=== PATIENT | female | born 1975 ===

== ENCOUNTER 2020-05-29 12:29 | Day surgery (SDC) | payer MEDICAID ==
[2020-05-29] MEDS ORDERED: Betamethasone Acetate/Betamethasone Sod Phosphate 30 MG/5 ML MDV EPIDUR ONE (14:30)
[2020-05-29] MEDS ORDERED: Lidocaine 2% 5 ML SDV INJECT ONE (14:30)
[2020-05-29] MEDS ORDERED: Ropivacaine 0.5% 5 MG/ML 30 ML SDV INJECT ONE (14:30)
[2020-05-29] MEDS ORDERED: Iopamidol 200-M 10 ML vial ITHECAL ONE (14:30)
--- NOTE | 2020-05-29 17:11 | OR ---
SURGEON: Di Mcgill D.O. DATE OF PROCEDURE: 05/29/2020 PRIMARY SURGEON: Di Mcgill DO ASSISTANTS: OR staff present: 1. Nolan Ford RT. 2. Sena Vásquez RN. 3. Elena Culp RN. WOUND CLASS: I. PREOPERATIVE DIAGNOSES: 1. Lumbar L5-S1 degenerative disk disease. 2. L3-4, L4-5, L5-S1 spondylosis. 3. Chronic low back pain with left lower extremity radiculopathy. POSTOPERATIVE DIAGNOSES: 1. Lumbar L5-S1 degenerative disk disease. 2. L3-4, L4-5, L5-S1 spondylosis. 3. Chronic low back pain with left lower extremity radiculopathy. PROCEDURES PERFORMED: 1. Left S1 transforaminal epidural steroid injection. 2. Fluoroscopic guidance for needle placement. 3. Local with oral Valium for sedation. SCREENING QUESTIONS: The patient answered "no" to all of the following questions: 1. Are you allergic to iodine, Betadine or latex? 2. Do you have a bleeding disorder? 3. Do you have any joint replacements, heart valve replacements, or a pacemaker? 4. Are you allergic to anti-inflammatories or blood thinners? 5. Do you have any current local or systemic infections? DESCRIPTION OF PROCEDURE: The patient had the procedure thoroughly explained including risks, benefits and alternatives. Consent was signed in my clinic indicating understanding and willingness to proceed. The patient presented to [facility] [place] where the patient was escorted to the dressing room to disrobe and change into a hospital gown. Preoperative vital signs were taken and stable. The patient reported that Valium was taken prior to the procedure. The patient was brought to the procedure room and placed in the prone position on the table. A pillow was placed under the abdomen in order to flatten the lumbar lordosis. The back was prepped with ChloraPrep and sterilely draped. All personnel in the operating room were dressed in appropriate attire including surgical scrubs, head and shoe covers. This was to ensure sterility while in the treatment room. During the time fluoroscopy was in use, all personnel in the operating room wore lead parks with thyroid collars. Sterile technique was used during the procedure. The fluoroscope was placed for the left S1 transforaminal epidural steroid injection. There was no sign of infection at the skin site for needle insertion. The skin was anesthetized with 2% lidocaine with a 27 gauge 1-1/2 inch needle. Then, a 22 gauge 3-1/2 inch spinal needle, advanced to the left S1. Under direct fluoroscopic guidance needle position was verified in three views; AP, oblique and lateral, with 0.2 cubic centimeters increments of Isovue- 200 dye. No intravascular flow pattern was observed under live fluoroscopy. Then 12 milligrams of Celestone and local was slowly injected after negative aspiration of heme, cerebrospinal fluid and no paresthesias were noted. The needle was cleared prior to removal from the skin. No adverse reactions were noted. The patient was brought to the recovery room awake and in good condition by my staff. The patient was monitored and discharge instructions were given after a brief stay in the recovery area. Both oral and written discharge and follow up instructions were given. The patient will follow up in the clinic in 3-4 weeks post procedure to evaluate the efficacy. The patient verbalized understanding including understanding of those signs and symptoms that would require emergency care and knows how to contact the office if there are any problems or questions in the meantime. PREOPERATIVE PAIN: 02/28. POSTOPERATIVE PAIN: 08/31. FOLLOWUP: In the Pain Clinic in 3 weeks. TONY / LOIS /[id number] LEIDY
== END 2020-05-29 14:30 ==
LOC: MW.SDS 12:29
PROVIDERS: ATTEND Anesthesiology
DX: G89.29 Other chronic pain (principal); M51.17 Intervertebral disc disorders with radiculopathy, lumbosacral region; M47.27 Other spondylosis with radiculopathy, lumbosacral region; M47.26 Other spondylosis with radiculopathy, lumbar region; M41.9 Scoliosis, unspecified; F41.9 Anxiety disorder, unspecified; F32.9 Major depressive disorder, single episode, unspecified; K21.9 Gastro-esophageal reflux disease without esophagitis; M79.18 Myalgia, other site; Z88.8 Allergy status to other drugs, medicaments and biological substances; Z79.899 Other long term (current) drug therapy; Z98.890 Other specified postprocedural states

== ENCOUNTER 2020-07-01 10:59 | Day surgery (SDC) | payer MEDICAID ==
[2020-07-01] MEDS ORDERED: Ropivacaine 0.5% 5 MG/ML 30 ML SDV INJECT ONE (12:30)
[2020-07-01] MEDS ORDERED: Betamethasone Acetate/Betamethasone Sod Phosphate 30 MG/5 ML MDV EPIDUR ONE (12:30)
[2020-07-01] MEDS ORDERED: Iopamidol 200-M 10 ML vial ITHECAL ONE (12:30)
[2020-07-01] MEDS ORDERED: Lidocaine 2% 5 ML SDV INJECT ONE (12:30)
--- NOTE | 2020-07-01 14:59 | OR ---
SURGEON: Di Mcgill D.O. DATE OF PROCEDURE: 07/01/2020 PRIMARY SURGEON: Di Mcgill D.O. PREOPERATIVE DIAGNOSES: 1. Lumbar spondylosis. 2. Lumbar facet arthropathy, L3-4, L4-5, and L5-S1. 3. Lumbar degenerative disk disease. 4. Chronic low back pain. POSTOPERATIVE DIAGNOSES: 1. Lumbar spondylosis. 2. Lumbar facet arthropathy, L3-4, L4-5, and L5-S1. 3. Lumbar degenerative disk disease. 4. Chronic low back pain. ASSISTANTS: OR staff present: 1. Sena Vásquez RN. 2. Anay Bautista RN. 3. Jluiette Wu RT. WOUND CLASS: I. PROCEDURES PERFORMED: 1. Right L3 medial branch block. 2. Right L4 medial branch block. 3. Right L5 dorsal ramus branch block. 4. Left L3 medial branch block. 5. Left L4 medial branch block. 6. Left L5 dorsal ramus branch block. 7. Fluoroscopic guidance for needle placement. 8. Local with oral Valium for sedation. SCREENING QUESTIONS: The patient answered "No" to all the following questions: 1. Are you allergic to iodine, Betadine or latex? 2. Do you have a bleeding disorder? 3. Are you on anti-inflammatories or blood thinners? 4. Do you have any current local or systemic infections? DESCRIPTION OF PROCEDURE: The patient had the procedure thoroughly explained including risks, benefits and alternatives. Consent was signed in my clinic indicating understanding and willingness to proceed. The patient presented to [facility] [place] and was escorted to the dressing room to disrobe and change into a hospital gown. Preoperative history and screening were performed by my nurse. Vital signs were taken and stable. The patient reported that Valium 10 milligrams was taken prior to the procedure. The patient was brought back to the procedure room and placed in the prone position on the procedure room table. A pillow was placed under the abdomen in order to flatten the lumbar lordosis. The back was prepped with ChloraPrep and sterilely draped. All personnel in the procedure room were dressed in appropriate attire including surgical scrubs, head and shoe covers. This was to ensure sterility while in the treatment room. During the time fluoroscopy was in use all personnel in the operating room wore lead parks with thyroid collars. Sterile technique was used during the procedure. Then the fluoroscope was positioned to provide a right oblique view for the right L3 and then the right L4 medial branch blocks. This was begun by anesthetizing the skin and soft tissues over the area. The fluoroscope was positioned and a sterile 22-gauge 3.5 inch needle was placed at the junction of the " 12 o'clock position of the eye of the Gregorio dog "' at the junction of the transverse process and the superior articular process of the L 4 and L5 vertebral body respectively. Precise needle placement was confirmed by fluoroscopy. Then 0.2 cubic centimeters of IsoVue-200 contrast dye was injected through microbore tubing under live fluoroscopy and showed no intravascular flow pattern and adequate flow over the target medial branch. After negative aspiration, 1.0 cubic centimeters of a mixture of Celestone and local was injected without complications. The fluoroscope was then positioned to provide a right L5 dorsal ramus block. This was begun by anesthetizing the skin and soft tissues over the right sacral sulcus. Then using fluoroscopic guidance, a sterile 22-gauge 3.5 inch spinal needle was positioned at the right sacral ala. Precise needle placement was confirmed by fluoroscopy in AP and oblique views, and 0.2 cubic centimeters of IsoVue-200 contrast dye was injected through microbore tubing under live fluoroscopy and showed no intravascular flow pattern and adequate flow over the target nerves. After negative aspiration, 0.5 cubic centimeters of 0.5% Ropivacaine was injected. No complications were noted. The fluoroscope was positioned then to provide a left L3 and L4 medial branch block. The skin was anesthetized. Then a 22-gauge 3.5 inch spinal needle was positioned at the junction of the transverse process and the superior articular process of the L4 and the L5 vertebral body on the left. Precise needle placement was confirmed by fluoroscopy and with 0.2 cubic centimeters of IsoVue-200 contrast dye injected through microbore tubing showing no intravascular flow pattern and adequate flow over the target medial branch of L4 on the left. Then 0.5 cubic centimeters of 0.5% Ropivacaine was injected after negative aspiration without complications. Then the fluoroscope was positioned for the left L5 dorsal ramus block. This was begun by anesthetizing the skin and soft tissues. Then with fluoroscopic guidance a sterile 22-gauge 3.5 inch spinal needle was positioned at the left sacral ala. Precise needle placement was confirmed with 0.2 cubic centimeters of IsoVue-200 contrast dye injected through microbore tubing under live fluoroscopy showing no intravascular flow pattern and adequate flow over the target L5 nerve. Then 0.5 cubic centimeters of 0.5% Ropivacaine was injected after negative aspiration without complications. The procedure was well tolerated and vital signs were stable during and after the procedure. The staff escorted the patient to the recovery area. The patient was given both oral and written discharge and followup instructions. The patient will follow up with a pain diary which will be evaluated over this evening doing things that would normally cause pain. We will evaluate the efficacy of the diagnostic lumbar medial branch blocks as the patient will follow up in the clinic the next day. The patient was given both oral and written discharge and followup instructions. The patient voiced understanding including understanding of those signs and symptoms that would require emergency care and knows how to contact the office if there are any questions or concerns in the meantime. PREOPERATIVE PAIN: 7/10. POSTOPERATIVE PAIN: 2/10. FOLLOWUP: In Pain Clinic in 3 weeks. TONY / LOIS /[id number] LEIDY
== END 2020-07-01 13:30 ==
LOC: MW.SDS 10:59
PROVIDERS: ATTEND Anesthesiology
DX: G89.29 Other chronic pain (principal); M47.816 Spondylosis without myelopathy or radiculopathy, lumbar region; M47.817 Spondylosis without myelopathy or radiculopathy, lumbosacral region; M51.36 Other intervertebral disc degeneration, lumbar region; F41.9 Anxiety disorder, unspecified; F32.9 Major depressive disorder, single episode, unspecified; M79.18 Myalgia, other site; M41.9 Scoliosis, unspecified; Z88.8 Allergy status to other drugs, medicaments and biological substances; Z79.899 Other long term (current) drug therapy; Z98.890 Other specified postprocedural states
CPT/HCPCS: 64493; 64494; 64495; J0702; J2001; J2795; Q9966